=== PATIENT | female | born 1990 | race Two or more races ===

== ENCOUNTER 2022-12-08 08:24 | Emergency (ER) | payer MEDICAID ==
[~2022-12-08] VITALS: Ht 175.3 cm; Wt 125.0 kg
[2022-12-08 09:37] LABS: BASOPHILS % 0.9 % (0.0-2.0); EOSINOPHILS % 2.5 % (0.0-5.0); HEMATOCRIT. 42.8 % (36.0-48.0); HEMOGLOBIN. 14.4 g/dL (12.0-16.0); LYMPHOCYTES % 29.6 % (20.0-50.0); MEAN CORPUSCULAR HEMOGLOBIN 29.7 pg (28.0-32.0); MEAN CORPUSCULAR VOLUME 88.3 fL (81.0-99.0); MEAN PLATELET VOLUME 9.3 fl (7.4-10.4); PLATELET 272 x1000/uL (130-400); RED BLOOD CELL COUNT 4.85 mill/uL (4.2-5.4); RED CELL DISTRIBUTION WIDTH 14.2 % (11.6-14.6)
[2022-12-08 09:42] LABS: CHLORIDE 111 mEq/L (98-107)
[2022-12-08 10:12] LABS: HCG SCREEN NEGATIVE
[2022-12-08] MEDS ORDERED: IBUPROFEN 400MG TABLET PO ONE (10:30)
[2022-12-08 11:28] VITALS: BP 148/88
== END 2022-12-08 13:32 | disposition home or self-care (01) ==
LOC: ER 08:24
DX: F43.0 Acute stress reaction (principal); R07.89 Other chest pain; R03.0 Elevated blood-pressure reading, without diagnosis of hypertension
CPT/HCPCS: 36415; 71045; 80053; 84484; 84703; 85025; 85379; 93005; 99285; Z7610